=== PATIENT | female | born 1990 | race Caucasian/White ===

== ENCOUNTER 2021-04-04 10:01 | Outpatient (CLI) | payer OTHER, SELFPAY ==
--- NOTE | ~2021-04-04 | MR_ITS ---
EXAMINATION: MR knee LT wo con DATE: 04/04/2021 11:09 INDICATION: Left knee pain post fall TECHNIQUE: Magnetic resonance imaging (MRI) of the left knee was performed without intravenous contra st. Sequences included coronal PD-weighted FSE, coronal PD-weighted FS FSE, sagittal T2-weighted FSE , sagittal PD-weighted FS FSE and axial PD weighted fat saturated FSE. COMPARISON: None. FINDINGS: Medial compartment: Medial meniscus is normal. Articular cartilage is normal. Lateral compartment: Lateral meniscus is normal. Articular cartilage is normal. Patellofemoral compartment: Articular cartilage is normal. Ligaments and tendons: Anterior and posterior cruciate ligaments are normal. The medial collateral ligament and fibular amber ateral ligament complex are normal. The extensor mechanism is normal. The visualized medial and later al hamstring tendons as well as the iliotibial band are normal. Fluid: Physiologic amount of fluid in the joint space. No loose osteochondral bodies identified. Osseous/other: Normal marrow signal. No fracture or pathologic marrow replacing process. Mild prepatellar edema or c ontusion. IMPRESSION: 1. Mild prepatellar edema or contusion. Otherwise normal MRI of the left knee. Reviewed, dictated and finalized at location A. R CASHIER
== END 2021-04-04 10:02 | disposition home or self-care (01) ==
LOC: ANHIMG 10:08
DX: M25.562 Pain in left knee (principal)
CPT/HCPCS: 73721